=== PATIENT | female | born 1970 | race Hispanic/Latino ===

== ENCOUNTER 2020-12-17 09:38 | Outpatient (CLI) | payer OTHER | END 2020-12-17 09:39 | disposition home or self-care (01) | LOC: BICMAMMO 09:38 | PROVIDERS: ATTEND Family Medicine | DX: Z12.31 Encounter for screening mammogram for malignant neoplasm of breast (principal) | CPT/HCPCS: 77067 ==

== ENCOUNTER 2023-08-17 11:54 | Outpatient (CLI) | payer OTHER | END 2023-08-17 11:55 | disposition home or self-care (01) | LOC: BICULT 11:54 | PROVIDERS: ATTEND Physician Assistant | DX: R30.0 Dysuria (principal) | CPT/HCPCS: 76770 ==